=== PATIENT | male | born 1980 | race Asian ===

== ENCOUNTER 2016-11-04 12:24 | Inpatient (IN) | payer OTHER ==
[~2016-11-04] VITALS: Ht 172.7 cm; Wt 68.0 kg
[2016-11-04 15:11] LABS: MEAN CORPUSCULAR HGB CONC 34.4 g/dl (32.0-36.5); RED CELL DISTRIBUTION WIDTH 12.7 % (11.5-14.5); WHITE BLOOD COUNT 6.6 K/mm3 (4.0-10.0)
[2016-11-04 15:27] LABS: METHADONE URINE NEGATIVE (NEGATIVE)
[2016-11-04 15:36] LABS: ALBUMIN 4.2 GM/DL (3.2-5.2); ALBUMIN/GLOBULIN RATIO 1.24 (1.00-1.93); ALKALINE PHOSPHATASE 52 U/L (45-117); ALT/SGPT 25 U/L (12-78); ANION GAP 11 MEQ/L (8-16); AST/SGOT 17 U/L (15-37); BILIRUBIN,DIRECT 0.1 MG/DL (0.0-0.2); BILIRUBIN,TOTAL 0.5 MG/DL (0.2-1.0); BLOOD UREA NITROGEN 16 MG/DL (7-18); CALCIUM LEVEL 8.9 MG/DL (8.5-10.1); CARBON DIOXIDE LEVEL 28 MEQ/L (21-32); CHLORIDE LEVEL 104 MEQ/L (98-107); GLOMERULAR FILTRATION RATE > 60.0 (>60); GLUCOSE, FASTING 100 MG/DL (70-105); POTASSIUM SERUM 3.5 MEQ/L (3.5-5.1); SODIUM LEVEL 143 MEQ/L (136-145); TOTAL PROTEIN 7.6 GM/DL (6.4-8.2)
[2016-11-04] MEDS ORDERED: LORA10TA2 PO (16:47)
[2016-11-04] MEDS ORDERED: VENLAFAXINE 37.5 MG TAB PO ONE (17:00)
[2016-11-04] MEDS ORDERED: ACETAMINOPHEN TAB 650MG DOSE (2X325MG) PO PRN (17:00)
[2016-11-04] MEDS ORDERED: MAALOX 30 ML SUSP *UDC PO PRN (17:00)
[2016-11-04] MEDS ORDERED: hydrOXYzine 50 MG TAB PO PRN (17:00)
[2016-11-04] MEDS ORDERED: traZODone 50 MG TAB PO PRN (17:00)
[2016-11-04] MEDS ORDERED: MOM 30ML SUSPENSION UDC PO PRN (17:00)
[2016-11-04 17:17] VITALS: BP 118/75
[2016-11-05 06:46] VITALS: BP 121/65
[2016-11-05] MEDS: LORATADINE 10 MG TAB PO SCH (09:00)
[2016-11-05] MEDS ORDERED: VENLAFAXINE 37.5 MG TAB PO SCH (09:00)
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
[2016-11-05 18:00] VITALS: BP 112/56
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
[2016-11-05] MEDS ORDERED: QUEtiapine FUMARATE 100 MG TAB PO SCH (21:00)
[2016-11-05] MEDS: QUEtiapine FUMARATE 100 MG TAB PO PRN (21:14)
[2016-11-06 07:01] VITALS: BP 115/60
[2016-11-06] MEDS: LORATADINE 10 MG TAB PO SCH (09:00)
--- NOTE | 2016-11-06 11:57 | ECGEPIP ---
Stationary ECG Study [facility] Test Date: 2016-11-05 Pat Name: MAIDA SAUNDERS Department: Room: [place] [address] Gender: M Phone Banker: NATALYA : 1980 Requested By: Megan Unger Order Number: [id number] Reading MD: Joselito Dinh Measurements Intervals [place] Rate: 62 P: 10 SD: 161 QRS: 68 QRSD: 110 T: 50 QT: 416 QTc: 424 Interpretive Statements SINUS RHYTHM borderline intraventricular conduction delay Comparison tracing not on file Electronically Signed On 11-06-2016 11:57:04 EDT by Joselito Dinh
[2016-11-06 18:00] VITALS: BP 111/53
--- NOTE | 2016-11-06 18:30 | MHIPN ---
DATE: 11/06/2016 CHIEF COMPLAINT: Says feels a bit better. SUBJECTIVE: Seen for followup. Indicates is feeling a bit better and is glad he is here. Says he is away from his stressors. Says was disturbed when one of the people in the chain of command insisted on seeing him, when the patient did not want him to. He suggested he was told that he was being selfish. He does not think that helps. He says sleep is better overall. He has been feeling a little less anxious. Appetite is fairly good. MENTAL STATUS EXAMINATION: Neat, cooperative. A bit guarded but more relaxed later. He displays no agitation. No psychomotor retardation. Affect is restricted but reactive. Denies any active suicidal thoughts or intents at present. No homicidal ideas or intents. No evidence of any psychosis. Cognition grossly intact. Judgment and insight fair, possibly compromised overall. ASSESSMENT: 1. Major depressive disorder. 2. Posttraumatic stress disorder, by history. PLAN: Continue current care and observations. Encourage participation in activities in the unit. Says has had a strain, right side of his neck. Has used muscle relaxant in the past. Requests one. We will explore this. He is to be encouraged to participate in activities in the unit. He is to continue with his current medications, which include the Effexor at 225 mg daily, quetiapine 100 mg at night as needed. VITAL SIGNS: Blood pressure 115/60, pulse 56, temperature 98.9.
[2016-11-06] MEDS: CYCLOBENZAPRINE 5MG TABLET PO PRN (20:08)
[2016-11-06] MEDS ORDERED: VENLAFAXINE 37.5 MG TAB PO SCH (21:00)
[2016-11-06] MEDS: QUEtiapine FUMARATE 100 MG TAB PO PRN (21:19)
[2016-11-07 07:00] VITALS: BP 119/58
[2016-11-07] MEDS: LORATADINE 10 MG TAB PO SCH (09:00)
[2016-11-07] MEDS ORDERED: VENLAFAXINE 37.5 MG TAB PO ONE (09:00)
[2016-11-07] MEDS ORDERED: VENLAFAXINE 37.5 MG TAB PO SCH (09:00)
[2016-11-07] MEDS: CYCLOBENZAPRINE 5MG TABLET PO PRN ×2 (10:52→20:55)
--- NOTE | 2016-11-07 12:48 | MHIPN ---
DATE: 11/07/2016 CHIEF COMPLAINT: Says feels better. SUBJECTIVE: Seen for followup, in the presence of staff, says feels better, and that he had a good nights sleep. He says he has woken up a bit more groggy and tired, but that it is clearing up. Says had visitors yesterday, family, and that went well. MENTAL STATUS EXAMINATION: Neat. Cooperative. He is sitting up in bed. He is coherent. Affect is reactive, currently denies any suicidal thoughts or intents. No homicidal ideas or intents. No evidence of psychosis. Cognition grossly intact. Judgment and insight fair. ASSESSMENT: Major depressive disorder. Post traumatic stress disorder by history. PLAN: Continue current care and observations. We will switch the timing of the venlafaxine so he takes it at night, per his request, he has informed staff about that. He is to continue with Seroquel at 100 mg at night as needed for insomnia, but I feel this ought to be used only in the short term temporarily. He is to be encouraged to participate in activities in the unit. He will be seeing the treatment team and be assigned a psychiatrist tomorrow. VITAL SIGNS: Blood pressure 119/58. Pulse 60. Temperature 98.1.
[2016-11-07 18:00] VITALS: BP 121/69
[2016-11-07] MEDS: VENLAFAXINE 37.5 MG TAB PO SCH (20:55)
[2016-11-07] MEDS: QUEtiapine FUMARATE 100 MG TAB PO PRN (20:55)
[2016-11-08 06:41] VITALS: BP 125/61
[2016-11-08] MEDS: OMEPRAZOLE 20 MG CAP PO SCH (09:00)
[2016-11-08] MEDS: LORATADINE 10 MG TAB PO SCH (09:00)
[2016-11-08] MEDS: CYCLOBENZAPRINE 5MG TABLET PO PRN (11:26)
[2016-11-08] MEDS ORDERED: IBUPROFEN 600 MG TAB PO PRN (15:45)
[2016-11-08 18:00] VITALS: BP 109/58
--- NOTE | 2016-11-08 18:51 | MHIPNPDOC ---
[facility] Progress Note Progress Note DATE OF SERVICE: 11/08/16 HISTORY: Patient reports having a visit from his CO on Tuesday which did not go well as his CO told him that his SI was a "selfish act". Patient feels he has made the best choice for himself at this time. Discussed the possibility of long -term care with the patient; he was reticent to the idea of long-term care in [place] but was amenable to [facility]. Patient reports no side-effects from his medications at this time and has been participating in groups, he has found some benefit so far but has not found any coping skill to assist him yet. He states that hospitalization is "like a vacation" because he has little responsibility. VITAL SIGNS: See below. NEW TEST RESULTS: no new labs/imaging CURRENT MEDICATIONS: See below. MENTAL STATUS EXAMINATION: Patient is a 36-year old male, who is dressed in [facility] with good hygiene/grooming; calm and cooperative with interview Speech: Is fluent; normal rate, rhythm, and tone Thought processes including: logical, linear, coherent Thought content: denies SI/HI; misses his children, wants to improve his coping skills Description of associations: intact Description of abnormal or psychotic thoughts: denies AVH, does not appear internally preoccupied; no paranoia or delusions elicited Judgment: good Insight: good Orientation: x3 Recent and remote memory: intact Attention span and concentration: intact Mood: "good". Affect: euthymic; constricted affect; congruent to mood and thought content DIAGNOSES: MDD, severe, without psychotic features PTSD ASSESSMENT: Patient is improving, coping well with his current situation. Currently not suicidal, making plans for the future and how to better cope with his stress. Focused on improving relations with his family. Patient interested in ongoing care once he discharges, will discuss further with patient and coordinate [facility]. MANAGEMENT PLAN: Continue current therapy; will continue to monitor TIME SPENT: 15 minutes. Vital Signs Vital Signs Date Time Temp Pulse Resp B/P (MAP) Pulse Ox O2 Delivery O2 Flow Rate FiO2 11/08/16 06:41 98.7 68 18 125/61 (82) 11/07/16 08:55 Room Air 11/04/16 17:17 99 Current Medications Current Medications Acetaminophen (Tylenol Tab) 650 mg Q6HP PRN PO HEADACHE or DISCOMFORT; Start at 17:00; Stop 12/04/16 at 16:59 Al Hydrox/Mg Hydrox/Simethicone (Mylanta) 30 ml Q4HP PRN PO HEARTBURN/ INDIGESTION; Start 11/04/16 at 17:00; Stop 12/04/16 at 16:59 Cyclobenzaprine HCl (Flexeril) 5 mg Q8H PRN PO MUSCLE SPASMS Last administered on 11/08/16 11:26; Start 11/06/16 at 20:00; Stop 11/08/16 at 19:59 Home Med (Med Rec Complete!) ASDIRECTED XX ; Start 11/04/16 at 17:00; Stop at 17:12; Status DC Hydroxyzine HCl (Atarax) 50 mg Q4HP PRN PO ANXIETY/AGITATION; Start 11/04/16 at 17:00; Stop 12/04/16 at 16:59 Ibuprofen (Advil) 600 mg Q6HP PRN PO MODERATE PAIN (PS 5-7); Start 11/08/16 at 15:45; Stop 12/08/16 at 15:44 Loratadine (Claritin) 10 mg DAILY PO ; Start 11/05/16 at 09:00; Stop 12/05/16 at 08:59 Magnesium Hydroxide (Milk Of Magnesia) 30 ml DAILYPRN PRN PO CONSTIPATION; Start 11/04/16 at 17:00; Stop 12/04/16 at 16:59 Omeprazole (PriLOSEC) 20 mg DAILY PO ; Start 11/08/16 at 09:00; Stop 12/08/16 at 08:59 Quetiapine Fumarate (SEROquel) 100 mg QHS PO ; Start 11/05/16 at 21:00; Stop at 21:00; Status DC Quetiapine Fumarate (SEROquel) 100 mg QHS PRN PO insomnia Last administered on 11/07/16 20:55; Start 11/05/16 at 21:00; Stop 12/05/16 at 20:59 Trazodone HCl (Desyrel) 75 mg QHSP PRN PO INSOMNIA Last administered on 21:04; Start 11/04/16 at 17:00; Stop 11/05/16 at 11:20; Status DC Venlafaxine HCl (Effexor) 75 mg DAILY PO Last administered on 11/05/16 08:34; Start 11/05/16 at 09:00; Stop 11/05/16 at 16:41; Status DC Venlafaxine HCl (Effexor) 75 mg QHS PO Last administered on 11/06/16 20:09; Start 11/06/16 at 21:00; Stop 11/07/16 at 11:42; Status DC Venlafaxine HCl (Effexor) 150 mg DAILY PO ; Start 11/07/16 at 09:00; Stop at 11:42; Status DC Venlafaxine HCl (Effexor) 225 mg QHS PO Last administered on 11/07/16 20:55; Start 11/07/16 at 21:00; Stop 12/07/16 at 20:59 Allergies Coded Allergies: No Known Allergies (Unverified , 11/04/16) VANI OLIVA MD Nov 08, 2016 18:51
[2016-11-08] MEDS: VENLAFAXINE 37.5 MG TAB PO SCH (20:57)
[2016-11-08] MEDS: QUEtiapine FUMARATE 100 MG TAB PO PRN (20:57)
[2016-11-09 06:28] VITALS: BP 135/79
[2016-11-09] MEDS: OMEPRAZOLE 20 MG CAP PO SCH (08:31)
[2016-11-09] MEDS: LORATADINE 10 MG TAB PO SCH (08:31)
--- NOTE | 2016-11-09 17:28 | MHIPNPDOC ---
[facility] Progress Note Progress Note DATE OF SERVICE: 11/09/16 HISTORY: Patient feels he is "getting my mind back on track", states that he is doing well away from the stresses of work. He displays a current inability to plan for future contingencies if his plans do not work the way he wishes. Confronted patient with the possibility of long-term care at [facility] or [facility], patient became upset stating that "my kids are my rock". He expressed displeasure over the idea of being away from them for an extended time period. Patient stated that his oldest son is actually step-son of his current and has had behavior problems in the past when the patient has been away, feels that it would be best for his family if he remains nearby. VITAL SIGNS: See below. NEW TEST RESULTS: no new labs/imaging. CURRENT MEDICATIONS: See below. MENTAL STATUS EXAMINATION: Patient is a 36-year old male, who is dressed in hospital clothes, well groomed ; calm and cooperative, good eye contact Speech: Is fluent; normal rate, tone, and volume Thought processes including: logical, linear, coherent Thought content: denies SI; reports he is feeling somewhat better but knows that his stresses are awaiting him at home Description of associations: intact Description of abnormal or psychotic thoughts: denies AVH, does not appear internally preoccupied; no paranoia or delusions elicited Judgment: good Insight: good Orientation: x3 Recent and remote memory: intact Attention span and concentration: intact Mood: "better" Affect: neutral; blunted range; congruent to mood and thought content DIAGNOSES: MDD, severe, without psychotic features PTSD ASSESSMENT: Patient is responding well to medications and group psychotherapy, has begun developing personal coping skills. He reports no intolerable side effects from his medication at this time. He remains motivated to continue treatment upon discharge but would prefer to remain closer to his family as he feels his presence is a stabilizing force in the relationship between his son and his . He expressed understanding that his NELL may override his wishes if it is thought to be a preferable way to manage his condition. MANAGEMENT PLAN: continue current medications; encourage patient to continue attending groups; continue discharge planning with [place] TIME SPENT: 15 minutes. Vital Signs Vital Signs Date Time Temp Pulse Resp B/P (MAP) Pulse Ox O2 Delivery O2 Flow Rate FiO2 11/09/16 15:08 Room Air 9/19/17 06:28 99.3 69 18 135/79 (97) 11/04/16 17:17 99 Current Medications Current Medications Acetaminophen (Tylenol Tab) 650 mg Q6HP PRN PO HEADACHE or DISCOMFORT; Start at 17:00; Stop 12/04/16 at 16:59 Al Hydrox/Mg Hydrox/Simethicone (Mylanta) 30 ml Q4HP PRN PO HEARTBURN/ INDIGESTION; Start 11/04/16 at 17:00; Stop 12/04/16 at 16:59 Cyclobenzaprine HCl (Flexeril) 5 mg Q8H PRN PO MUSCLE SPASMS Last administered on 11/08/16 11:26; Start 11/06/16 at 20:00; Stop 11/08/16 at 19:59; Status DC Home Med (Med Rec Complete!) ASDIRECTED XX ; Start 11/04/16 at 17:00; Stop at 17:12; Status DC Hydroxyzine HCl (Atarax) 50 mg Q4HP PRN PO ANXIETY/AGITATION; Start 11/04/16 at 17:00; Stop 12/04/16 at 16:59 Ibuprofen (Advil) 600 mg Q6HP PRN PO MODERATE PAIN (PS 5-7); Start 11/08/16 at 15:45; Stop 12/08/16 at 15:44 Loratadine (Claritin) 10 mg DAILY PO ; Start 11/05/16 at 09:00; Stop 12/05/16 at 08:59 Magnesium Hydroxide (Milk Of Magnesia) 30 ml DAILYPRN PRN PO CONSTIPATION Last administered on 11/09/16 08:33; Start 11/04/16 at 17:00; Stop 12/04/16 at 16: 59 Omeprazole (PriLOSEC) 20 mg DAILY PO ; Start 11/08/16 at 09:00; Stop 12/08/16 at 08:59 Quetiapine Fumarate (SEROquel) 100 mg QHS PO ; Start 11/05/16 at 21:00; Stop at 21:00; Status DC Quetiapine Fumarate (SEROquel) 100 mg QHS PRN PO insomnia Last administered on 11/08/16 20:57; Start 11/05/16 at 21:00; Stop 12/05/16 at 20:59 Trazodone HCl (Desyrel) 75 mg QHSP PRN PO INSOMNIA Last administered on 21:04; Start 11/04/16 at 17:00; Stop 11/05/16 at 11:20; Status DC Venlafaxine HCl (Effexor) 75 mg DAILY PO Last administered on 11/05/16 08:34; Start 11/05/16 at 09:00; Stop 11/05/16 at 16:41; Status DC Venlafaxine HCl (Effexor) 75 mg QHS PO Last administered on 11/06/16 20:09; Start 11/06/16 at 21:00; Stop 11/07/16 at 11:42; Status DC Venlafaxine HCl (Effexor) 150 mg DAILY PO ; Start 11/07/16 at 09:00; Stop at 11:42; Status DC Venlafaxine HCl (Effexor) 225 mg QHS PO Last administered on 11/08/16 20:57; Start 11/07/16 at 21:00; Stop 12/07/16 at 20:59 Allergies Coded Allergies: No Known Allergies (Unverified , 11/04/16) VANI OLIVA MD Nov 09, 2016 17:28
[2016-11-09 18:00] VITALS: BP 118/62
[2016-11-09] MEDS: QUEtiapine FUMARATE 100 MG TAB PO PRN (20:57)
[2016-11-09] MEDS: VENLAFAXINE 37.5 MG TAB PO SCH (20:57)
[2016-11-10 06:47] VITALS: BP 109/59
[2016-11-10] MEDS: LORATADINE 10 MG TAB PO SCH (08:42)
[2016-11-10] MEDS: OMEPRAZOLE 20 MG CAP PO SCH (08:42)
--- NOTE | 2016-11-10 17:35 | MHIPNPDOC ---
[facility] Progress Note Progress Note DATE OF SERVICE: 11/10/16 HISTORY: Patient had good visit with his and children last night, had just finished a meeting with his command prior to today's interview. Patient was in good spirits because he reported that his NELL had agreed for him to enter [facility] for PTSD once discharged. Patient was happy as he would be allowed to stay with his family during treatment. He was excited about the possibility of receiving care while maintaining his important family ties. VITAL SIGNS: See below. NEW TEST RESULTS: no new labs/imaging CURRENT MEDICATIONS: See below. MENTAL STATUS EXAMINATION: Patient is a 36-year old male, who is dressed in [facility] with good grooming/hygiene; cooperative with interview, pleasant Speech: Is fluent; normal rate, tone, and volume Thought processes including: logical, linear, coherent Thought content: denies SI/HI; happy that his NELL was very supportive Description of abnormal or psychotic thoughts: denies AVH, does not appear internally preoccupied; no delusions or paranoia elicited Judgment: good Insight: good Orientation: x3 Recent and remote memory: intact Attention span and concentration: intact Mood: "happy". Affect: bright; blunted range; congruent to mood and thought content. DIAGNOSES: MDD, severe, without psychotic features PTSD ASSESSMENT: Patient has shown improvement in coping since admission; he has not had side effects from his medications and has been attending groups regularly. Throughout the stay the patient has been open with the treatment team and clearly communicated his desires for treatment. He has expressed interest in continued outpatient therapy to address his PTSD and has sought to work with his NELL to develop a plan that would assist him. Patient has had intermittent SI, but has not had clear plans or intent. His risk of suicide is mildly elevated from the general population, but as he is motivated to seek treatment and will be removed from his usual stressors is likely not a severe risk to himself. MANAGEMENT PLAN: continue current meds; will discharge patient to his NELL with follow-up at [facility] and [facility] TIME SPENT: 15 minutes. Vital Signs Vital Signs Date Time Temp Pulse Resp B/P (MAP) Pulse Ox O2 Delivery O2 Flow Rate FiO2 11/10/16 08:40 Room Air 11/10/16 06:47 98.1 88 20 109/59 (76) 11/04/16 17:17 99 Current Medications Current Medications Acetaminophen (Tylenol Tab) 650 mg Q6HP PRN PO HEADACHE or DISCOMFORT; Start at 17:00; Stop 12/04/16 at 16:59 Al Hydrox/Mg Hydrox/Simethicone (Mylanta) 30 ml Q4HP PRN PO HEARTBURN/ INDIGESTION; Start 11/04/16 at 17:00; Stop 12/04/16 at 16:59 Cyclobenzaprine HCl (Flexeril) 5 mg Q8H PRN PO MUSCLE SPASMS Last administered on 11/08/16 11:26; Start 11/06/16 at 20:00; Stop 11/08/16 at 19:59; Status DC Home Med (Med Rec Complete!) ASDIRECTED XX ; Start 11/04/16 at 17:00; Stop at 17:12; Status DC Hydroxyzine HCl (Atarax) 50 mg Q4HP PRN PO ANXIETY/AGITATION; Start 11/04/16 at 17:00; Stop 12/04/16 at 16:59 Ibuprofen (Advil) 600 mg Q6HP PRN PO MODERATE PAIN (PS 5-7); Start 11/08/16 at 15:45; Stop 12/08/16 at 15:44 Loratadine (Claritin) 10 mg DAILY PO ; Start 11/05/16 at 09:00; Stop 12/05/16 at 08:59 Magnesium Hydroxide (Milk Of Magnesia) 30 ml DAILYPRN PRN PO CONSTIPATION Last administered on 11/09/16 08:33; Start 11/04/16 at 17:00; Stop 12/04/16 at 16: 59 Omeprazole (PriLOSEC) 20 mg DAILY PO ; Start 11/08/16 at 09:00; Stop 12/08/16 at 08:59 Quetiapine Fumarate (SEROquel) 100 mg QHS PO ; Start 11/05/16 at 21:00; Stop at 21:00; Status DC Quetiapine Fumarate (SEROquel) 100 mg QHS PRN PO insomnia Last administered on 11/09/16 20:57; Start 11/05/16 at 21:00; Stop 12/05/16 at 20:59 Trazodone HCl (Desyrel) 75 mg QHSP PRN PO INSOMNIA Last administered on 21:04; Start 11/04/16 at 17:00; Stop 11/05/16 at 11:20; Status DC Venlafaxine HCl (Effexor) 75 mg DAILY PO Last administered on 11/05/16 08:34; Start 11/05/16 at 09:00; Stop 11/05/16 at 16:41; Status DC Venlafaxine HCl (Effexor) 75 mg QHS PO Last administered on 11/06/16 20:09; Start 11/06/16 at 21:00; Stop 11/07/16 at 11:42; Status DC Venlafaxine HCl (Effexor) 150 mg DAILY PO ; Start 11/07/16 at 09:00; Stop at 11:42; Status DC Venlafaxine HCl (Effexor) 225 mg QHS PO Last administered on 11/09/16 20:57; Start 11/07/16 at 21:00; Stop 12/07/16 at 20:59 Allergies Coded Allergies: No Known Allergies (Unverified , 11/04/16) VANI OLIVA MD Nov 10, 2016 17:35
[2016-11-10 18:32] VITALS: BP 117/64
[2016-11-10] MEDS: VENLAFAXINE 37.5 MG TAB PO SCH (21:08)
[2016-11-10] MEDS: QUEtiapine FUMARATE 100 MG TAB PO PRN (22:10)
[2016-11-11 06:50] VITALS: BP 131/81
[2016-11-11] MEDS: LORATADINE 10 MG TAB PO SCH (09:00)
[2016-11-11] MEDS: OMEPRAZOLE 20 MG CAP PO SCH (09:00)
[2016-11-11] MEDS ORDERED: VENL37TA PO (09:01)
[2016-11-11] MEDS ORDERED: QUET1TAB8 PO (09:01)
[2016-11-11] MEDS ORDERED: HYDRO50TAB PO (09:01)
--- NOTE | 2016-11-11 17:25 | MHDSPDOC ---
[facility] Discharge Summary Discharge Summary DATE OF ADMISSION: Nov 04, 2016 at 16:29 DATE OF DISCHARGE: Nov 11, 2016 at 10:15 DISCHARGE DIAGNOSES: PTSD MDD, severe, without psychotic features REASON FOR ADMISSION: Patient experiencing suicidal ideation with plan to drive his car into a pole. CONSULTANTS INVOLVED: none TREATMENT AND PROGRESS ON THE UNIT : Patient was admitted for safety and brought to unit. He revealed a detailed history involving long-standing depression and PTSD both combat and non-combat related. Patient was started on venlafaxine to assist with his anxiety, which was his most debilitating symptom to him. He was trialed on trazodone to assist with sleep but received little benefit. Patient was given Seroquel to bolster the effect of the venlafaxine. This provided a good quality of sleep for the patient. He was, throughout his stay, able to engage in group activities and reported much benefit from skill- based groups. He was approached with the idea of long-term care but the patient felt that [facility] would better suit his needs. Patient discharged to care of his [id number] with plan to follow at [facility]. HOSPITAL COURSE: Admitted for safety, had difficulty sleeping the first and second nights. Readily engaged with the treatment team and participated in group activities. Requested that his children be allowed to see him on the unit as they are one of his primary motivators. Had a poor visit from his commander on the first day of admission but was able to mitigate the SI the visit induced. Other members of his command stepped in and removed the stressor from the patient's mind. Patient was able to communicate effectively with both his NELL and the treatment team throughout his stay. He did not experience SI for the final 2-3 days of his stay. DISCHARGE ASSESSMENT: 36 year old man with long-standing depression that partially stems from childhood non-combat PTSD. 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 Prior to this hospitalization he was managing by suppressing his feelings and distancing himself from others, especially his family. Patient has begun to identify stressors and triggers that have prevented him from feeling well. Has repeatedly demonstrated the ability to engage thoughtfully with treatment team recommendations. Would be stable to continue at [facility] with focus on his PTSD symptoms. He is not a danger to himself or others, based upon his motivation, lack of attempts, future orientation, and desire to support his children his risk of suicide is low. MENTAL STATUS EXAMINATION ON DISCHARGE: Patient is a 36-year old male, who is dressed in personal clothes which are appropriate for the season. Well groomed, calm and cooperative, good eye contact Speech is fluent; normal rate, tone, and volume Thought processes including: logical, linear, coherent Thought content: denies SI/HI; reports focusing on his treatment and being able to see his children Abstract reasoning, and computation: intact Description of associations: intact Description of abnormal or psychotic thoughts: denies AVH, does not appear internally preoccupied; no delusions or paranoia evident Judgment: good Insight: good Orientation to x3 Recent and remote memory: intact Attention span and concentration: intact Mood: "happy" Affect: bright; full range; congruent to mood and thought content MEDICATIONS ON DISCHARGE: Venlafaxine 225mg QHS for mood/anxiety Seroquel 100mg QHS PRN for sleep/anxiety PLAN/FOLLOWUP ARRANGEMENTS: will follow with [facility] and [facility] The amount of time spent in the coordination of care for this patient was approximately 30 minutes. Vital Signs/I&Os Vital Signs Date Time Temp Pulse Resp B/P (MAP) Pulse Ox O2 Delivery O2 Flow Rate FiO2 11/11/16 06:50 97.7 62 16 131/81 (98) 11/10/16 08:40 Room Air Medications Scheduled Loratadine (Loratadine) 10 Mg Tab, 10 MG PO DAILY, (Reported) Venlafaxine HCl (Venlafaxine HCl) 37.5 Mg Tab, 225 MG PO QHS for MOOD, #42 Scheduled PRN Hydroxyzine HCl (Hydroxyzine HCl) 50 Mg Tab, 50 MG PO Q4HP PRN for ANXIETY/ AGITATION, #21 Quetiapine Fumerate (Quetiapine Fumarate) 100 Mg Tab, 100 MG PO QHS PRN for insomnia, #7 Allergies Coded Allergies: No Known Allergies (Unverified , 11/04/16) VANI OLIVA MD Nov 11, 2016 17:25
== END 2016-11-11 10:15 | disposition home or self-care (01) | DRG 885 ==
LOC: M ED 12:24 → M ED INP 16:29 → M PSY 17:13
PROVIDERS: ADMIT Psychiatry & Neurology Psychiatry; ATTEND Psychiatry & Neurology Psychiatry
DX: F32.2 Major depressive disorder, single episode, severe without psychotic features (principal); R45.851 Suicidal ideations; F43.10 Post-traumatic stress disorder, unspecified; G47.00 Insomnia, unspecified; M54.5 Low back pain

== ENCOUNTER → 2018-01-18 | Outpatient (REF) | payer OTHER ==
[2018-01-18 13:46] LABS: AMORPHOUS SEDIMENT LARGE (NEGATIVE); APPEARANCE, URINE TURBID (CLEAR); BACTERIA, URINE AUTO NEGATIVE (NEGATIVE); BILIRUBIN, URINE AUTO NEGATIVE (NEGATIVE); BLOOD, URINE BLOOD 3+ (NEGATIVE); COLOR, URINE YELLOW (YELLOW); GLUCOSE, URINE (UA) AUTO NEGATIVE (NEGATIVE); KETONE, URINE AUTO NEGATIVE (NEGATIVE); LEUKOCYTE ESTERASE, URINE AUTO NEGATIVE (NEGATIVE); MUCUS, URINE SMALL (NEGATIVE); NITRITE, URINE AUTO NEGATIVE (NEGATIVE); PROTEIN, URINE AUTO NEGATIVE (NEGATIVE); RBC, URINE AUTO 0 /HPF (0-3); SPECIFIC GRAVITY URINE AUTO 1.026 (1.002-1.035); SQUAMOUS EPITHELIAL CELL UR AU 0 /HPF (0-6); UROBILINOGEN, URINE AUTO 0.2 mg/dL (0.0-2.0); WBC, URINE AUTO 0 /HPF (0-3)
== END ==
LOC: M SMT 13:05
DX: R35.0 Frequency of micturition (principal)
CPT/HCPCS: 81001